=== PATIENT | male | born 1955 | race Two or more races ===

== ENCOUNTER 2021-11-09 15:04 | Inpatient (IN) | payer OTHER, MEDICAID ==
[~2021-11-09] VITALS: Ht 162.6 cm; Wt 104.6 kg
[2021-11-09] MEDS ORDERED: LACTATED RINGER'S 1,000 ML IV ONE ×2 (16:15→23:00)
[2021-11-09] MEDS ORDERED: IOHEXOL 300 MG/ML 100ML BOTTLE IJ ONE (16:23)
[2021-11-09 17:02] LABS: Basophils # (auto) 0.1 10 ^3/uL (0-0.2); Basophils % (auto) 0.5 % (0.0-2.0); Eosinophils # (auto) 0 10 ^3/uL (0-0.8); Eosinophils % (auto) 0.2 % (0.0-7.0); Hematocrit 43.2 % (41.0-53.0); Hemoglobin 14.2 g/dL (13.5-17.5); Lymphocytes # (auto) 1.7 10 ^3/uL (0.4-5.4); Lymphocytes % (auto) 9.5 % (10.0-50.0); Mean Corpuscular Hemoglobin 29.3 pg (28.0-32.0); Mean Corpuscular Hgb Conc. 32.9 g/dL (32.0-36.0); Mean Corpuscular Volume 88.9 fL (80.0-100.0); Monocytes # (auto) 0.9 10 ^3/uL (0-1.3); Neutrophils # (auto) 14.9 10 ^3/uL (1.6-8.6); Neutrophils % (auto) 84.8 % (37.0-80.0); Nucleated Red Blood Cells % 0.1 %; Red Blood Cells 4.86 10^6/uL (4.5-5.90); Red Cell Distribution Width 15.1 % (11.8-14.3); White Blood Cell 17.5 10^3/uL (4.4-10.8)
[2021-11-09 17:10] LABS: INR 1.03 (0.9-1.15); Partial Thromboplastin Time 23.3 sec (24.6-33.4)
[2021-11-09 17:14] LABS: Albumin 4.1 g/dL (3.4-5.0); BUN/Creatinine Ratio 10.5; Calcium 8.3 mg/dL (8.5-10.1); Potassium 4.5 mmol/L (3.5-5.1)
[2021-11-09 17:17] LABS: Bilirubin, Total 0.4 mg/dL (0.2-1.0); Total Protein 7.3 g/dL (6.4-8.2)
[2021-11-09 17:18] LABS: Lactic Acid w/Reflex 3.8 mmol/L (0.4-2.0)
[2021-11-09] MEDS: ONDANSETRON HCL 4 MG/2 ML VIAL IV SCH (17:55)
[2021-11-09] MEDS: MORPHINE SULFATE 4 MG/ML SYR/VIAL IV PRN (17:56)
[2021-11-09 19:09] LABS: Urine Bacteria NONE SEEN /hpf (None Seen); Urine Blood Negative /uL (Negative); Urine Hyaline Cast MOD /lpf (0 - 2); Urine Mucus FEW (None Seen); Urine WBC <1 /hpf (0 - 3)
[2021-11-09 19:13] LABS: Urine Specific Gravity > 1.050 (1.001-1.035)
[2021-11-09] MEDS ORDERED: levoFLOXacin 500MG 100 ML IV ONE (19:45)
[2021-11-09] MEDS ORDERED: TETANUS-DIPTH-ACEL PERTUSSIS 0.5ML SYR Tdap IM ONE (19:45)
[2021-11-09] MEDS ORDERED: DEXTROSE (50%) 50ML SYRG IV PRN (23:45)
[2021-11-09] MEDS ORDERED: VANCOMYCIN PER PHARMACY 0 MG IV SCH (23:45)
[2021-11-09] MEDS ORDERED: TEMAZEPAM 15 MG CAP PO PRN (23:45)
[2021-11-09] MEDS ORDERED: ONDANSETRON HCL 4 MG/2 ML VIAL IV PRN (23:45)
[2021-11-09] MEDS ORDERED: NITROGLYCERIN 0.4 MG SL TAB SL PRN (23:45)
[2021-11-09] MEDS ORDERED: MORPHINE SULFATE INJ 2 MG/ml SYRG IV PRN (23:45)
[2021-11-10] MEDS ORDERED: VANCOMYCIN 1GM/250ML 250 ML IV ONE (00:30)
[2021-11-10] MEDS: ONDANSETRON HCL 4 MG/2 ML VIAL IV SCH ×3 (01:00→10:00)
[2021-11-10] MEDS: MORPHINE SULFATE 4 MG/ML SYR/VIAL IV PRN (01:08)
[2021-11-10 02:29] VITALS: BP 139/90
[2021-11-10 05:00] VITALS: BP 133/85
[2021-11-10] MEDS ORDERED: ALLO100T PO (05:16)
[2021-11-10 06:07] LABS: Basophils # (auto) 0 10 ^3/uL (0-0.2); Basophils % (auto) 0.1 % (0.0-2.0); Eosinophils # (auto) 0 10 ^3/uL (0-0.8); Eosinophils % (auto) 0.1 % (0.0-7.0); Hematocrit 41.2 % (41.0-53.0); Hemoglobin 13.5 g/dL (13.5-17.5); Mean Corpuscular Hemoglobin 28.9 pg (28.0-32.0); Mean Corpuscular Hgb Conc. 32.9 g/dL (32.0-36.0); Mean Corpuscular Volume 87.8 fL (80.0-100.0); Monocytes # (auto) 0.7 10 ^3/uL (0-1.3); Monocytes % (auto) 6.4 % (0.0-12.0); Neutrophils # (auto) 9.9 10 ^3/uL (1.6-8.6); Neutrophils % (auto) 84.4 % (37.0-80.0); Red Blood Cells 4.69 10^6/uL (4.5-5.90); Red Cell Distribution Width 15.2 % (11.8-14.3); White Blood Cell 11.7 10^3/uL (4.4-10.8)
[2021-11-10 06:19] LABS: Albumin 3.9 g/dL (3.4-5.0); Calcium 8.4 mg/dL (8.5-10.1); Potassium 4.3 mmol/L (3.5-5.1)
[2021-11-10 06:22] LABS: BUN/Creatinine Ratio 14.2; Bilirubin, Total 0.6 mg/dL (0.2-1.0); Total Protein 7.6 g/dL (6.4-8.2)
[2021-11-10] MEDS: ACCU-CHEK COMFORT CURVE STRIP VI SCH ×4 (06:48→21:55)
[2021-11-10] MEDS: InsuLIN REG 1unit/0.01ml Soln (100units/ml) SC SCH ×4 (07:05→21:45)
[2021-11-10] MEDS: MORPHINE SULFATE INJ 2 MG/ml SYRG IV PRN ×4 (07:16→23:17)
[2021-11-10 09:00] VITALS: BP 114/67
[2021-11-10] MEDS: LACTATED RINGER'S 1,000 ML IV SCH ×2 (09:30→21:35)
[2021-11-10] MEDS: FAMOTIDINE (10MG/ML) 2ML VL IV SCH ×2 (10:12→21:54)
[2021-11-10] MEDS: HEPARIN SODIUM (PORCINE) 5000 UNITS/ML 1ML VIAL SC SCH ×2 (10:30→20:39)
[2021-11-10] MEDS ORDERED: TERA2CAP45 PO (11:26)
[2021-11-10] MEDS ORDERED: ONDANSETRON HCL 4 MG/2 ML VIAL IV PRN (12:30)
[2021-11-10 13:00] VITALS: BP_SYST 114; BP_SYST 122; BP_DIAS 67; BP_DIAS 74
[2021-11-10 17:00] VITALS: BP 139/85
[2021-11-10] MEDS: TERAZOSIN HCL 1 MG CAP PO SCH (21:54)
[2021-11-10 22:00] VITALS: BP 129/78
[2021-11-11 05:00] VITALS: BP 140/100
[2021-11-11] MEDS: MORPHINE SULFATE INJ 2 MG/ml SYRG IV PRN ×3 (05:43→18:34)
[2021-11-11 06:15] LABS: Basophils # (auto) 0 10 ^3/uL (0-0.2); Basophils % (auto) 0.4 % (0.0-2.0); Eosinophils # (auto) 0 10 ^3/uL (0-0.8); Eosinophils % (auto) 0.2 % (0.0-7.0); Hematocrit 38.7 % (41.0-53.0); Hemoglobin 13.1 g/dL (13.5-17.5); Lymphocytes # (auto) 1.1 10 ^3/uL (0.4-5.4); Lymphocytes % (auto) 9.7 % (10.0-50.0); Mean Corpuscular Hemoglobin 29.6 pg (28.0-32.0); Mean Corpuscular Hgb Conc. 33.8 g/dL (32.0-36.0); Mean Corpuscular Volume 87.6 fL (80.0-100.0); Monocytes # (auto) 0.6 10 ^3/uL (0-1.3); Monocytes % (auto) 5.5 % (0.0-12.0); Neutrophils # (auto) 9.4 10 ^3/uL (1.6-8.6); Neutrophils % (auto) 84.2 % (37.0-80.0); Red Blood Cells 4.42 10^6/uL (4.5-5.90); Red Cell Distribution Width 15.1 % (11.8-14.3); White Blood Cell 11.2 10^3/uL (4.4-10.8)
[2021-11-11] MEDS: InsuLIN REG 1unit/0.01ml Soln (100units/ml) SC SCH ×4 (06:22→22:00)
[2021-11-11] MEDS: ACCU-CHEK COMFORT CURVE STRIP VI SCH ×4 (06:49→21:48)
[2021-11-11] MEDS: HYDROcodone-ACET 5/325MG TAB PO PRN (08:49)
[2021-11-11 09:00] VITALS: BP 150/89
[2021-11-11] MEDS: FAMOTIDINE (10MG/ML) 2ML VL IV SCH (10:00)
[2021-11-11] MEDS: PSYLLIUM PWD 5.8GM PKG PO SCH (10:00)
[2021-11-11] MEDS: HEPARIN SODIUM (PORCINE) 5000 UNITS/ML 1ML VIAL SC SCH ×2 (10:00→21:47)
[2021-11-11] MEDS: ALLOPURINOL 100 MG TAB PO SCH (10:00)
[2021-11-11] MEDS: DOCUSATE SOD 100 MG CAP PO PRN (10:01)
[2021-11-11] MEDS: LACTATED RINGER'S 1,000 ML IV SCH (11:37)
[2021-11-11 12:58] VITALS: BP 139/73
[2021-11-11 17:00] VITALS: BP 166/77
[2021-11-11] MEDS ORDERED: levoFLOXacin 500MG 100 ML IV SCH (20:00)
[2021-11-11] MEDS: TERAZOSIN HCL 1 MG CAP PO SCH (21:48)
[2021-11-11 22:00] VITALS: BP 149/89
[2021-11-11] MEDS ORDERED: MIDAZOLAM HCL 2MG/2ML 2ml VIAL (1mg/ml) IV PRN (23:30)
[2021-11-12] VITALS (8 sets, daily range): BP systolic 122–154; BP diastolic 76–84
[2021-11-12] MEDS: MORPHINE SULFATE INJ 2 MG/ml SYRG IV PRN ×3 (00:42→23:20)
[2021-11-12 05:25] LABS: Basophils # (auto) 0 10 ^3/uL (0-0.2); Basophils % (auto) 0.4 % (0.0-2.0); Eosinophils # (auto) 0.1 10 ^3/uL (0-0.8); Eosinophils % (auto) 0.8 % (0.0-7.0); Hematocrit 39.3 % (41.0-53.0); Lymphocytes # (auto) 1.4 10 ^3/uL (0.4-5.4); Lymphocytes % (auto) 14.4 % (10.0-50.0); Mean Corpuscular Hemoglobin 29.4 pg (28.0-32.0); Monocytes # (auto) 0.7 10 ^3/uL (0-1.3); Monocytes % (auto) 7.5 % (0.0-12.0); Neutrophils # (auto) 7.4 10 ^3/uL (1.6-8.6); Neutrophils % (auto) 76.9 % (37.0-80.0); Nucleated Red Blood Cells % 0.1 %; Red Blood Cells 4.42 10^6/uL (4.5-5.90); Red Cell Distribution Width 14.7 % (11.8-14.3); White Blood Cell 9.7 10^3/uL (4.4-10.8)
[2021-11-12 05:41] LABS: Calcium 8.1 mg/dL (8.5-10.1)
[2021-11-12 05:44] LABS: BUN/Creatinine Ratio 14.6
[2021-11-12] MEDS: InsuLIN REG 1unit/0.01ml Soln (100units/ml) SC SCH ×4 (06:37→21:25)
[2021-11-12] MEDS: ACCU-CHEK COMFORT CURVE STRIP VI SCH ×4 (06:37→21:16)
[2021-11-12] MEDS ORDERED: ADENOSINE 91 MG in GIVE UN-DILUTED 0 ML IV STA (07:52)
[2021-11-12] MEDS: HEPARIN SODIUM (PORCINE) 5000 UNITS/ML 1ML VIAL SC SCH ×2 (10:00→21:14)
[2021-11-12] MEDS: ALLOPURINOL 100 MG TAB PO SCH (11:23)
[2021-11-12] MEDS: PSYLLIUM PWD 5.8GM PKG PO SCH (11:23)
[2021-11-12] MEDS: TERAZOSIN HCL 1 MG CAP PO SCH (21:14)
[2021-11-12] MEDS: DOCUSATE SOD 100 MG CAP PO PRN (21:15)
[2021-11-12] MEDS: HYDROcodone-ACET 5/325MG TAB PO PRN (21:16)
[2021-11-13 05:00] VITALS: BP 150/91
[2021-11-13] MEDS: ACCU-CHEK COMFORT CURVE STRIP VI SCH ×4 (06:37→21:46)
[2021-11-13] MEDS: InsuLIN REG 1unit/0.01ml Soln (100units/ml) SC SCH ×4 (06:37→21:51)
[2021-11-13 09:00] VITALS: BP 147/79
[2021-11-13] MEDS: PSYLLIUM PWD 5.8GM PKG PO SCH (09:08)
[2021-11-13] MEDS: ALLOPURINOL 100 MG TAB PO SCH (09:08)
[2021-11-13] MEDS: MORPHINE SULFATE INJ 2 MG/ml SYRG IV PRN ×2 (09:25→16:00)
[2021-11-13] MEDS: HEPARIN SODIUM (PORCINE) 5000 UNITS/ML 1ML VIAL SC SCH ×2 (11:03→21:45)
[2021-11-13 13:00] VITALS: BP 143/62
[2021-11-13] MEDS ORDERED: TERA1CAP50 PO (15:49)
[2021-11-13 16:49] VITALS: BP 150/68
[2021-11-13 20:00] VITALS: BP 145/89
[2021-11-13] MEDS: TERAZOSIN HCL 1 MG CAP PO SCH (21:43)
[2021-11-13 22:00] VITALS: BP 145/89
[2021-11-14] MEDS: MORPHINE SULFATE INJ 2 MG/ml SYRG IV PRN ×3 (00:09→12:05)
[2021-11-14 05:37] VITALS: BP 152/84
[2021-11-14] MEDS: ACCU-CHEK COMFORT CURVE STRIP VI SCH ×3 (06:15→17:00)
[2021-11-14] MEDS: InsuLIN REG 1unit/0.01ml Soln (100units/ml) SC SCH ×3 (06:15→17:00)
[2021-11-14] MEDS: PSYLLIUM PWD 5.8GM PKG PO SCH (08:04)
[2021-11-14] MEDS: DOCUSATE SOD 100 MG CAP PO PRN (08:05)
[2021-11-14] MEDS: HEPARIN SODIUM (PORCINE) 5000 UNITS/ML 1ML VIAL SC SCH (08:06)
[2021-11-14 08:15] VITALS: BP 135/81
[2021-11-14] MEDS ORDERED: ALLOPURINOL 100 MG TAB PO SCH (10:00)
[2021-11-14 11:30] VITALS: BP 147/93
[2021-11-14 16:54] VITALS: BP 136/80
[2021-11-14 21:00] VITALS: BP 132/58
[2021-11-14 21:30] VITALS: BP 132/58
== END 2021-11-14 21:45 | disposition short-term general hospital (02) | DRG 963 ==
LOC: ER 15:04 → EDBD 15:04 → TELE 23:44 → TELE-WESTW 11-10 01:50
PROVIDERS: ADMIT Nurse Practitioner Family; ATTEND Internal Medicine
PROC: 5A09357 Assistance with Respiratory Ventilation, Less than 24 Consecutive Hours, Continuous Positive Airway Pressure (ICD-10-PCS; principal; 2021-11-12)
DX: S06.9X1A Unspecified intracranial injury with loss of consciousness of 30 minutes or less, initial encounter (principal); G82.50 Quadriplegia, unspecified; S14.129A Central cord syndrome at unspecified level of cervical spinal cord, initial encounter; I21.A1 Myocardial infarction type 2; E87.2 Acidosis; G99.2 Myelopathy in diseases classified elsewhere; N13.8 Other obstructive and reflux uropathy; Z68.41 Body mass index [BMI] 40.0-44.9, adult; R65.10 Systemic inflammatory response syndrome (SIRS) of non-infectious origin without acute organ dysfunction; N17.9 Acute kidney failure, unspecified; S81.812A Laceration without foreign body, left lower leg, initial encounter; S92.911A Unspecified fracture of right toe(s), initial encounter for closed fracture; S81.811A Laceration without foreign body, right lower leg, initial encounter; I10 Essential (primary) hypertension; D72.829 Elevated white blood cell count, unspecified; E11.65 Type 2 diabetes mellitus with hyperglycemia; W11.XXXA Fall on and from ladder, initial encounter; G47.30 Sleep apnea, unspecified; E66.01 Morbid (severe) obesity due to excess calories; M48.02 Spinal stenosis, cervical region; I27.20 Pulmonary hypertension, unspecified; Z20.822 Contact with and (suspected) exposure to COVID-19; Z96.659 Presence of unspecified artificial knee joint; M54.12 Radiculopathy, cervical region; N40.1 Benign prostatic hyperplasia with lower urinary tract symptoms; Z80.0 Family history of malignant neoplasm of digestive organs; Z82.49 Family history of ischemic heart disease and other diseases of the circulatory system; Z85.028 Personal history of other malignant neoplasm of stomach; Z88.6 Allergy status to analgesic agent; Z88.5 Allergy status to narcotic agent; Z88.0 Allergy status to penicillin; Z88.8 Allergy status to other drugs, medicaments and biological substances; Z71.3 Dietary counseling and surveillance; Y93.89 Activity, other specified; Y92.89 Other specified places as the place of occurrence of the external cause; Y99.8 Other external cause status
CPT/HCPCS: 36415; 70450; 70551; 71260; 72125; 72141; 73630; 74177; 78452; 80048; 80053; 80061; 81001; 82962; 83036; 83605; 84443; 84484; 85025; 85610; 85730; 90471; 90715; 93005; 93017; 93306; 94660; 96361; 96365; 97110; 97116; 97163; 97530; G0378; J0153; J1815; J1956; J2405; J3490